=== PATIENT | male | born 1960 | race Asian ===

== ENCOUNTER 2023-07-27 08:58 | Day surgery (SDC) | payer BC, SELFPAY ==
[2023-07-27] VITALS (16 sets, daily range): BP systolic 95–116; BP diastolic 69–78; BMI 28.1
[2023-07-27] MEDS: LOW STRENGTH ASPIRIN 81 MG PO (09:41)
[2023-07-27] MEDS: NSS 230 ML IV (09:41)
[2023-07-27] MEDS: BRILINTA 90 MG PO (09:50)
--- NOTE | 2023-07-27 11:33 | ITS.CL.ANGIO ---
[employer] [employer] [facility] - Angioplasty
Angioplasty
Procedure Report:
LEFT HEART CATHETERIZATION
Date of Procedure: July 27, 2023
Procedures performed:
1: Coronary angiography
2: Percutaneous coronary invention left anterior descending artery with placement of a 3.0 x 18 mm Xience drug-eluting stent postdilated high-pressure with a 3.25 mm diameter noncompliant balloon
Primary Care Physician: Dr. Syd Mondragon
Primary Senior Human Resources Representative: Dr. Keenan Silverio
INDICATION: The patient is a 63-year-old man who presented with an inferior ST elevation [place] complicated by transient right ventricular shock at [facility] earlier in June. At that time he was noted to have high-grade focal mid LAD
disease and now presents for staged PCI.
ACCESS: The patient was prepped and draped in usual sterile fashion. A 6 Moldovan sheath was placed in the right radial artery using the Seldinger over the wire technique.
HEMODYNAMIC FINDINGS (mmHg):
LV(s/d,EDP): 102/10, 25
Ao(s/d,m): 100/65, 80
ANGIOGRAPHIC FINDINGS:
Single-plane Left Ventriculography in DELEON Projection: Not done
Coronary Angiography:
Dominance: Right
Left Main: Medium caliber, normal.
Left Anterior Descending: The left anterior descending artery is a medium caliber vessel that has a 80% lesion just after the takeoff of a large caliber diagonal branch which has mild nonobstructive ostial disease. All vessels have normal flow.
Left Circumflex: The left circumflex is relatively small nondominant vessel that gives rise to 2 very high obtuse marginal branches which coursed in a ramus distribution and appear to be widely patent with normal flow.
Right Coronary: The right coronary artery is a gigantic dominant vessel that has long overlapping stents in the proximal and midportion that are widely patent. The posterior descending artery is a large-caliber vessel that has a smooth proximal 50%
stenosis. The distal right coronary artery gives rise to a huge posterior left ventricular branch that has a widely patent previously placed proximal PLV stent and normal flow into large distal PLV branches.
Percutaneous Coronary Intervention (PCI): The patient was pretreated with aspirin and ticagrelor. Unfractionated heparin was given. A 6 Moldovan XB 3.5 guiding catheter was used to engage the left main. A Hi-Torque floppy wire was successfully
advanced down the LAD. Primary stenting with a 3.0 x 18 mm drug-eluting stent was performed at 14 lisa. The stent was postdilated with a 3.25 mm diameter noncompliant balloon inflated at 16 lisa. Care was taken to stay within the stented margins.
FINAL RESULT: 0% in-stent residual stenosis with an excellent angiographic result and MAINE-3 flow in all vessels.
Fluoroscopy Time (min): 7.1
Radiation Dose (mGy): 361
DAP (Gy.cm2): 21
Closure device: None. A TR band was applied for hemostasis at the right wrist.
Complications: None.
ASSESSMENT:
1: Successful PCI of the LAD with placement of drug-eluting stent as described above.
2: Widely patent previously placed RCA stents.
3: Elevated left ventricular filling pressures.
CONCLUSIONS and RECOMMENDATIONS:
1: Routine post drug-eluting stent medical therapy and monitoring.
2: Routine post TX medical therapy and monitoring with close clinical follow-up as scheduled with Dr. Silverio.
3: Okay to begin cardiac rehab.
Bhavin Grissom M.D.
Copy to: Dr. Syd Mondragon
[2023-07-27] MEDS: NSS 1000 IV (13:28)
--- NOTE | 2023-07-27 14:51 | W.PN.UPDATE ---
Update Note
Progress Note Update
63 yo male s/p PCI LAD (same day). He feels good, no cp, sob, syeda diet, voiding, R rad site c/d/i, EKG with lateral STD unchanged. He will continue DAPT ASA/Brilinta. CArdiac rehab c/s. He will continue metoprolol, atorvastatin. Activity
restrictions reviewed. He will f/u Dr. Silverio in 2-4 weeks. He is for d/c home after 4pm.
Procedures performed:
1: Coronary angiography
2: Percutaneous coronary invention left anterior descending artery with placement of a 3.0 x 18 mm Xience drug-eluting stent postdilated high-pressure with a 3.25 mm diameter noncompliant balloon
Primary Care Physician: Dr. Syd Mondragon
Primary Office Assistant: Dr. Keenan Silverio
INDICATION: The patient is a 63-year-old man who presented with an inferior ST elevation [place] complicated by transient right ventricular shock at [facility] earlier in June.� At that time he was noted to have high-grade focal mid LAD
disease and now presents for staged PCI.
[2023-07-28 07:45] LABS: ACT-LR - POC > 397 Seconds (116-155)
== END 2023-07-27 16:00 | disposition home or self-care (01) ==
LOC: CATH 08:58
PROVIDERS: ATTENDING PHYSICIAN Internal Medicine Interventional Cardiology; FAMILY PHYSICIAN Internal Medicine; OTHER PHYSICIAN Internal Medicine
DX: I25.10 Atherosclerotic heart disease of native coronary artery without angina pectoris (principal); I25.2 Old myocardial infarction; Z95.5 Presence of coronary angioplasty implant and graft; Z79.82 Long term (current) use of aspirin; Z79.02 Long term (current) use of antithrombotics/antiplatelets; Z79.52 Long term (current) use of systemic steroids
CPT/HCPCS: 85347; 93005; 93454; 93458; C1725; C1769; C1874; C1887; C1894; C9600; Q9967

== ENCOUNTER 2023-09-16 11:17 | Outpatient (RCR) | payer BC, SELFPAY | END 2023-09-16 23:59 | disposition home or self-care (01) | LOC: CRHB 11:17 | PROVIDERS: ATTENDING PHYSICIAN Internal Medicine | DX: Z95.5 Presence of coronary angioplasty implant and graft (principal); I25.10 Atherosclerotic heart disease of native coronary artery without angina pectoris | CPT/HCPCS: 93797; 93798 ==

== ENCOUNTER 2023-10-18 08:30 | Outpatient (RCR) | payer BC, SELFPAY | END 2023-10-18 23:59 | disposition home or self-care (01) | LOC: CRHB 08:30 | PROVIDERS: ATTENDING PHYSICIAN Internal Medicine | DX: I25.10 Atherosclerotic heart disease of native coronary artery without angina pectoris (principal); Z95.5 Presence of coronary angioplasty implant and graft | CPT/HCPCS: 93797; 93798 ==

== ENCOUNTER 2023-11-08 09:34 | Outpatient (RCR) | payer BC, SELFPAY | END 2023-11-08 23:59 | disposition home or self-care (01) | LOC: CRHB 09:34 | PROVIDERS: ATTENDING PHYSICIAN Internal Medicine | DX: I25.10 Atherosclerotic heart disease of native coronary artery without angina pectoris (principal); Z95.5 Presence of coronary angioplasty implant and graft | CPT/HCPCS: 93797; 93798 ==